=== PATIENT | female | born 1985 | race African-American/Black ===

== ENCOUNTER 2023-08-14 19:01 | Emergency (ER) | payer MEDICAID ==
[~2023-08-14] VITALS: Ht 167.6 cm; Wt 90.0 kg
[2023-08-14 19:09] VITALS: BP 124/71; PULSE 98; RESP 18; TEMP 98.5; O2SAT 99
[2023-08-14] MEDS ORDERED: POLY119P2 MT (19:50)
== END 2023-08-14 20:00 | disposition home or self-care (01) ==
LOC: ER 19:01
DX: E11.649 Type 2 diabetes mellitus with hypoglycemia without coma (principal)
CPT/HCPCS: 82962; 99283

== ENCOUNTER 2025-02-05 17:41 | Emergency (ER) | payer MEDICAID, OTHER ==
[~2025-02-05] VITALS: Ht 167.6 cm; Wt 68.0 kg
[~2025-02-05 17:41] MED LIST: POLY119P2 MT
[2025-02-05 17:42] VITALS: TEMP 36.7; O2SAT 100
[2025-02-05 18:36] LABS: BASOPHILS % 0.6 % (0.0-2.0); EOSINOPHILS % 0.7 % (0.0-5.0); HEMATOCRIT. 37.2 % (36.0-48.0); HEMOGLOBIN. 12.5 g/dL (12.0-16.0); LYMPHOCYTES % 30.2 % (20.0-50.0); MEAN CORPUSCULAR HEMOGLOBIN 29.2 pg (28.0-32.0); MEAN CORPUSCULAR HGB CONC 33.5 g/dL (31.0-37.0); MEAN CORPUSCULAR VOLUME 87.4 fL (81.0-99.0); MEAN PLATELET VOLUME 9.9 fl (7.4-10.4); MONOCYTES % 5.6 % (2.0-8.0); NEUTROPHILS % 62.9 % (40.0-76.0); PLATELET 264 x1000/uL (130-400); RED BLOOD CELL COUNT 4.26 mill/uL (4.2-5.4); RED CELL DISTRIBUTION WIDTH 13.6 % (11.6-14.6); WHITE BLOOD COUNT 7.6 x1000/uL (4.5-11.0)
[2025-02-05 18:43] LABS: CHLORIDE 100 mEq/L (98-107); POTASSIUM 3.4 mEq/L (3.5-5.1); SODIUM 136 mEq/L (136-145)
[2025-02-05 18:44] LABS: CARBON DIOXIDE 26 mEq/L (21-32)
[2025-02-05 18:45] LABS: CALCIUM 8.9 mg/dL (8.7-10.4)
[2025-02-05 18:50] LABS: CREATININE 0.7 mg/dL (0.6-1.0); GLUCOSE 157 mg/dL (70-105); HCG SCREEN NEGATIVE; UREA NITROGEN BLOOD 9 mg/dL (9-23)
[2025-02-05 18:56] LABS: TROPONIN I HIGH SENSITIVITY < 4 ng/L (3.0-34)
[2025-02-05 19:51] VITALS: BP 117/74; PULSE 78; RESP 17; O2SAT 98
[2025-02-05 19:58] LABS: PROTHROMBIN TIME 10.7 sec (9.6-11.0)
== END 2025-02-05 19:57 | disposition home or self-care (01) ==
LOC: ER 17:44
DX: R07.89 Other chest pain (principal); F43.89 Other reactions to severe stress; E11.9 Type 2 diabetes mellitus without complications; I10 Essential (primary) hypertension; Z88.6 Allergy status to analgesic agent; Z79.899 Other long term (current) drug therapy
CPT/HCPCS: 36415; 71045; 80048; 83880; 84484; 84703; 85025; 93005; 99285